=== PATIENT | female | born 1985 | race American Indian/Alaskan Native ===

== ENCOUNTER 2019-12-21 04:42 | Observation (INO) | payer MEDICAID ==
--- NOTE | 2019-12-21 06:19 | Event Note ---
Date: 12/21/19 (Presented for ctxs, found to have HR of 180) Ms. Perez is a 34 y.o. @ 39+ wks who presented to triage with c/o ctxs. Upon nursing assessment, she was found to have a HR of 180. She is known to the practice for an irregular heart rate and is being follow by [facility] d/t this irregular HR. When asked pt states that her chest feels funny. HR noted to be 200 while provider at the bedside. Dr. Garcia consulted. EKG and labs ordered stat. Also consult for hospitalist to come and see patient. Denies shortness of breath, fever, chills, known exposure to COVID-19 pts. Continuous cardiac monitoring also ordered. pharmacy services representative, Andrey noted. Pt seen and evaluated with Dr. Garcia.
--- NOTE | 2019-12-21 06:37 | Consultation ---
History of Present Illness - History of Present Illness 34-year-old woman with no medical problems, , 37 weeks is being seen for tachycardia. Patient's heart rate was in the 180s upon arrival, her heart rate is now 122, normal sinus rhythm without intervention. Patient saw a map compiler 1-1/2 months ago for irregular heart rate, tachycardia, he wore a Holter monitor. Her evaluation showed PACs, her echo was normal, she was told to follow-up with cardiology in the next seven months. The patient came to labor and delivery because she started having contractions. She is comfortable in bed, no shortness of breath, palpitations, chest pain, currently has no abdominal pain or contractions, fever, sick contacts, cough Review Of Systems: Constitutional: no weight loss, fever, chills Ears, eyes, nose, mouth and throat: no nasal congestion, no nasal discharge, no sinus pressure, blurry vision, diplopia Neck: No neck pain or rigidity. Cardiovascular: No palpitations, chest pain Respiratory: No shortness of breath, cough Gastrointestinal: No hematochezia Genitourinary : no dysuria, frequency Musculoskeletal: no muscle ache , joint pain Integumentary: no rash, no pruritis Neurological: no parathesias, focal weakness Endocrine: no cold or heat intolerance, no polyuria or polydipsia Hematologic/Lymphatic: no easy bruising, no easy bleeding, no gland swelling Allergic/Immunologic: no urticaria, no angioedema. PAST MEDICAL HISTORY: None PAST SURGICAL HISTORY: Excision of fallopian tube SOCIAL HISTORY: Denies alcohol, tobacco, drugs FAMILY HISTORY: Hypertension Medications and Allergies Active Meds: Active Medications Labetalol HCl (Labetalol) 50 mg PO ONCE ONE Stop: 12/21/19 06:32 Exam - Physical Exam Narrative exam: Gen. appearance: Patient lying in bed, no apparent distress HEENT: Normocephalic, atraumatic, pupils equally round and reactive to light, extraocular movement intact, and no sclericterus,. No JVD or thyromegaly or nodule,neck supple, no carotid bruit ,mucous membranes moist, no exudate or erythema Heart: S1, S2, regular rate and rhythm Lungs: Clear bilaterally, breathing comfortable Abdomen: Positive bowel sounds, nontender, nondistended, no organomegaly Extremity: no edema, cyanosis, clubbing Skin: No rash, nodules, warm, dry Neuro: Hernial nerves II to XII intact speech is fluent, moves extremities, sensory intact - Constitutional Vitals: Temp Pulse Resp BP Pulse Ox 98.5 F 116 H 18 127/58 97 12/21/19 06:30 12/21/19 06:30 12/21/19 06:30 12/21/19 06:30 12/21/19 06:30 Assessment and Plan Assessment Sinus tachycardia Give a one-time low-dose labetalol now, start fluids Consult her map compiler Case discussed with Dr. Garcia Will sign out to incoming hospistalist labs are pending
--- NOTE | 2019-12-21 06:40 | Event Note ---
Date: 12/21/19 Maternl heart on arrival was noted to be 200 and palpated ~same by CNM. Patient complained of contractions and ? ROM. She denies CP or SOB. She was placed on equipment monitor phototypesetting, EKG, CMP and CBC ordered and Hospitalist consulted. Will consult Cardiology as well. Now MHR 120's with tachycardia. Hospitalist present to evaluated. Will start IVF. Observe closely
[2019-12-21 07:23] LABS: Basophils % (Auto) 0.4 % (0.0-1.8); Eosinophils % (Auto) 0.2 % (0.0-4.3); Hematocrit 33.4 % (30.3-42.9); Lymphocytes % (Auto) 17.8 % (13.4-35.0); Mean Corpuscular HGB Conc 33 % (30-34); Mean Corpuscular Volume 91 fl (79-97); Monocytes % (Auto) 8.6 % (0.0-7.3); Platelet Count 199 K/mm3 (140-440); Red Blood Count 3.68 M/mm3 (3.65-5.03); Red Cell Distribution Width 15.4 % (13.2-15.2)
[2019-12-21 07:24] LABS: Lymphocytes # (Auto) 1.1 K/mm3 (1.2-5.4); Monocytes # (Auto) 0.5 K/mm3 (0.0-0.8)
--- NOTE | 2019-12-21 08:17 | Ultrasound Report ---
ULTRASOUND OBSTETRIC LIMITED INDICATION / CLINICAL INFORMATION: well being: tachycardia. TECHNIQUE: Transabdominal ultrasound imaging. COMPARISON: None available. FINDINGS: HEART RATE (beats per minute): 165 AMNIOTIC FLUID INDEX (cm) = 10.4 PRESENTATION: Cephalic. ADDITIONAL FINDINGS: None. IMPRESSION: No significant abnormality. Signer Name: Rj Duggan Jr, MD Signed: 12/21/2019 8:13 AM Workstation Name: [id number]
[2019-12-21 09:15] LABS: Alanine Aminotransferase 8 units/L (7-56); Albumin 3.3 g/dL (3.9-5); BUN/Creatinine Ratio 14; Blood Urea Nitrogen 10 mg/dL (7-17); Calcium 10.1 mg/dL (8.4-10.2); Hemolysis Index 25
--- NOTE | 2019-12-21 10:35 | Consultation ---
History of Present Illness Consult date: 12/21/19 Requesting physician: CHRIS MEDNEZ Consult reason: tachycardia History of present illness: The pt is a 34YO female who is 39+ wks who presented to triage with c/o contractions. Pt states that she thought she was in labor. Per the chart, upon nursing assessment, she was found to have a HR of 180. Admission ECG shows NSR with HR WNL. There are no telemetry strips available for review. Pt denies any cardiac complaints. She states that she is known to have a history of tachycardia. She has been seen in our office by Dr. Martinez. She underwent 48Hr Holter study in 09/2019 which showed persistent sinus tachycardia with isolated PACs, otherwise no significant arrhythmias noted. Echo done 10/09/2019 showed EF 55-60%, unremarkable except for sigmoid septum measuring 1.3cm. Past History Past Medical History: other (as per HPI) Medications and Allergies Allergies Allergy/AdvReac Type Severity Reaction Status Date / Time No Known Allergies Allergy Unverified 12/21/19 07:04 Review of Systems Constitutional: no weight loss, no weight gain, no fever, no chills, no sweats Ears, nose, mouth and throat: no ear pain, no nose pain, no sinus pressure, no sinus pain Cardiovascular: no chest pain, no orthopnea, no palpitations, no syncope, no lightheadedness, no shortness of breath, no dyspnea on exertion, no high blood pressure Respiratory: no cough, no shortness of breath, no dyspnea on exertion, no congestion, no wheezing, no pain on inspiration Gastrointestinal: other (uterine contractions), no nausea, no vomiting, no diarrhea, no constipation, no change in bowel habits Genitourinary Female: , no pelvic pain, no flank pain, no dysuria, no urinary frequency, no urgency Musculoskeletal: no neck stiffness, no neck pain, no shooting arm pain, no arm numbness/tingling, no low back pain, no shooting leg pain Integumentary: no rash, no pruritis, no redness, no sores, no wounds Neurological: no head injury, no paralysis, no weakness, no parathesias, no numbness, no tingling, no seizures, no syncope Psychiatric: no anxiety Endocrine: no cold intolerance, no heat intolerance Hematologic/Lymphatic: no easy bruising Allergic/Immunologic: no urticaria Physical Examination Vital Signs Pulse BP Pulse Ox 124 H 106/68 97 12/21/19 05:00 12/21/19 05:00 12/21/19 05:00 General appearance: no acute distress HEENT: Positive: PERRL, Normocephaly, Mucus Membranes Moist Neck: Positive: neck supple, trachea midline Cardiac: Positive: Regular Rhythm, S1/S2 Lungs: Positive: Decreased Breath Sounds Neuro: Positive: Grossly Intact Abdomen: Positive: Other () Skin: Negative: Rash Musculoskeletal: No Pain Extremities: Absent: edema Results 12/21/19 06:43 12/21/19 06:43 Cardiac Enzymes 12/21/19 Range/Units 06:43 AST 14 (5-40) units/L Lactate Dehydrogenase 194 H (91-180) units/L CBC 12/21/19 Range/Units 06:43 WBC 6.2 (4.5-11.0) K/mm3 RBC 3.68 (3.65-5.03) M/mm3 Hgb 11.0 (10.1-14.3) gm/dl Hct 33.4 (30.3-42.9) % Plt Count 199 (140-440) K/mm3 Lymph # 1.1 L (1.2-5.4) K/mm3 Hayes # 0.5 (0.0-0.8) K/mm3 Eos # 0.0 (0.0-0.4) K/mm3 Baso # 0.0 (0.0-0.1) K/mm3 Comprehensive Metabolic Panel 12/21/19 Range/Units 06:43 Sodium 136 L (137-145) mmol/L Potassium 4.0 (3.6-5.0) mmol/L Chloride 101.3 (98-107) mmol/L Carbon Dioxide 19 L (22-30) mmol/L BUN 10 (7-17) mg/dL Creatinine 0.7 (0.7-1.2) mg/dL Glucose 90 (65-100) mg/dL Calcium 10.1 (8.4-10.2) mg/dL AST 14 (5-40) units/L ALT 8 (7-56) units/L Alkaline Phosphatase 106 (35-129) units/L Total Protein 7.2 (6.3-8.2) g/dL Albumin 3.3 L (3.9-5) g/dL - Imaging and Cardiology Echo: report reviewed (10/09/2019 showed EF 55-60%, unremarkable except for sigmoid septum measuring 1.3cm.) Holter: report reviewed (48Hr Holter study in 09/2019 which showed persistent sinus tachycardia with isolated PACs, otherwise no significant arrhythmias noted.) EKG: report reviewed, image reviewed EKG interpretations - Telemetry EKG Rhythm: Sinus Rhythm - EKG Sinus rhythms and dysrhythmias: sinus rhythm Assessment and Plan Pt has known history of sinus tachycardia. She has been seen in our office by Dr. Martienz. She underwent 48Hr Holter study in 09/2019 which showed persistent sinus tachycardia with isolated PACs, otherwise no significant arrhythmias noted. Echo done 10/09/2019 showed EF 55-60%, unremarkable except for sigmoid septum measuring 1.3cm. Currently stable cardiac status. Pt has no current cardiac complaints. Suspect sinus tachycardia will improve following delivery. Per EMPLOYMENT CASE MANAGER team, pt to discharge home. Nothing further to add from cardiac perspective at this time. Recommend pt follow up in our office with Dr. Martinez within 1 month ([phone]). The patient has been seen in conjunction with Dr. Deleon who agrees with the assessment and plan of care. - Patient Problems (1) Sinus tachycardia Current Visit: Yes Status: Acute (2) Current Visit: Yes Status: Acute
[2019-12-21 10:37] VITALS: BP 128/67
--- NOTE | 2019-12-21 11:20 | Event Note ---
Date: 12/21/[address] Deleon via telephone.Patient is stable for discharge from cardiology standpoint ( see cardilology note) .Will discharge patient will normal labor precaution f/u appointment in our office on 12/23/2019.
== END 2019-12-21 11:01 | disposition home or self-care (01) ==
LOC: TRG 04:42 → LD 04:43 → TRG 04:44 → LD 06:45
PROVIDERS: ADMIT Obstetrics & Gynecology; ATTEND Obstetrics & Gynecology
DX: O62.9 Abnormality of forces of labor, unspecified (principal); O26.893 Other specified pregnancy related conditions, third trimester; R00.0 Tachycardia, unspecified; Z3A.39 39 weeks gestation of pregnancy
CPT/HCPCS: 36415; 59025; 76815; 80053; 82728; 83615; 84145; 85025; 85379; 86140; 93005; 93010; G0378

== ENCOUNTER 2019-12-25 23:23 | Outpatient (CLI) | payer MEDICAID ==
[2019-12-25 23:50] VITALS: BP 117/71
== END 2019-12-26 01:05 | disposition home or self-care (01) ==
LOC: TRG 23:23 → APU 23:24 → TRG 12-26 01:05
PROVIDERS: ATTEND Obstetrics & Gynecology
DX: O47.1 False labor at or after 37 completed weeks of gestation (principal); Z3A.39 39 weeks gestation of pregnancy
CPT/HCPCS: 59025

== ENCOUNTER 2019-12-27 20:25 | Inpatient (IN) | payer MEDICAID ==
[2019-12-27] MEDS ORDERED: MINERAL OIL 30 ML ORAL LIQD PO PRN (20:59)
[2019-12-27] MEDS ORDERED: TERBUTALINE 1 MG/1 ML INJ SUB-Q PRN (20:59)
[2019-12-27] MEDS ORDERED: ePHEDrine SULFATE 50 MG/1 ML INJ IV PRN (20:59)
[2019-12-27] MEDS ORDERED: OXYTOCIN 20 UNIT/1000ML DRIP 20 UNITS/1,000 ML BAG IV SCH (21:00)
--- NOTE | 2019-12-27 21:17 | History and Physical Report ---
History of Present Illness Date of examination: 12/27/19 Date of admission: 12/27/19 20:25 Chief complaint: IOL Per [facility] recommendations @ 40+01 weeks History of present illness: EDC Confirmation: 12/26/2019 Past History : 3 Term Births: 0 Premature Births: 1 Living Children: 1 Para: 1 Mult. Births: 0 Prev : 0 Prev. attempt? none Aborta: 0 Elect. Ab: 0 Spont. Ab: 0 Ectopics: 1 # 1 Delivery date: 01/06/2012 Weeks Gestation: 34.4 labor: yes Delivery type: Anesthesia type: none Infant Sex: Female weight: 5# Name: Jennifer Comments: delivered at [facility] # 2 Delivery date: 09/15/2012 Comments: ectopic Past Medical History: Negative Past Medical History Past Surgical History: negative Past Medical History Anesthesia Complications: negative Anemia: negative Autoimmune Disorder: negative Bleeding Disorder: negative Blood Transfusions: negative Breast Disease: negative Diabetes: negative Heart Disease: negative Hypertension: negative Hepatitis/Liver Disease: negative Kidney Disease/UTI: negative Neurologic/Epilepsy/Migraines: negative Phlebitis/Varicosities: negative Psychiatric: negative Pulmonary Disease/Asthma: negative Thyroid Disease: negative Hospitalizations: negative Surgery (Non-product test specialist): negative Abnormal PAP: negative LALITHA Exposure: negative Infertility: negative Uterine Anomaly: negative Uterine Surgery (not C/S): negative Infection History Personal hx. of genital herpes: yes Varicella/Chicken Pox Status: Previous Disease Genetic History Congenital Heart Defect: Mom: no Dad: no Awais Disease: Mom: no Dad: no Thalassemia Mom: no Dad: no Neural Tube Defect Mom: no Dad: no Down's Syndrome Mom: no Dad: no Bonifacio-Sachs Mom: no Dad: no Sickle Cell Disease/Trait Mom: no Dad: no Hemophilia Mom: no Dad: no Muscular Dystrophy Mom: no Dad: no Cystic Fibrosis Mom: no Dad: no Eloisa Chorea Mom: no Dad: no Mental Retardation Mom: no Dad: no Fragile X Mom: no Dad: no Other Genetic/Chromosomal Disorder Mom: no Dad: no Child w/other defect Mom: no Dad: no Enviromental Exposures Xray Exposure: no Medication, drug, or alcohol use since LMP: no Chemical/Other Exposure: no Exposure to Cat Liter: no Hx of Parvovirus (Fifth Disease): no Occupational Exposure to Children: none Current Allergies (reviewed today): No known allergies Past History Past Medical History: other (See HPI) Past Surgical History: other (See HPI) QUILL REAMER History: herpes Family/Genetic History: other (see HPI) Social history: no significant social history - Obstetrical History Expected Date of Delivery: 12/26/19 Actual Gestation: 40 Week(s) 1 Day(s) : 3 Para: 1 Hx # Term Pregnancies: 0 Number of Pregnancies: 1 Spontaneous Abortions: 1 (ectopic) Induced : 0 Number of Living Children: 1 Medications and Allergies Allergies Allergy/AdvReac Type Severity Reaction Status Date / Time No Known Allergies Allergy Unverified 12/21/19 07:04 Active Meds: Active Medications Butorphanol Tartrate (Stadol) 2 mg IV Q2H PRN PRN Reason: Pain , Severe (7-10) Dinoprostone (Cervidil) 10 mg VG ONCE ONE Stop: 12/27/19 22:01 Ephedrine Sulfate (Ephedrine Sulfate) 10 mg IV Q2M PRN PRN Reason: Hypotension Oxytocin/Sodium Chloride (Pitocin/Ns 20 Unit/1000ml Drip) 20 units in 1,000 mls @ 125 mls/hr IV DIRECT JULIANA Lactated Ringer's (Lactated Ringers) 1,000 mls @ 125 mls/hr IV DIRECT JULIANA Lidocaine (Xylocaine 2%) 20 ml INFILTRATI ONCE ONE Stop: 12/27/19 22:01 Mineral Oil (Mineral Oil) 30 ml PO QHS PRN PRN Reason: Constipation Terbutaline Sulfate (Brethine) 0.25 mg SUB-Q ONCE PRN PRN Reason: Hyperstimulation/Hypertonicity Review of Systems All systems: negative Genitourinary: no genital sores - Vital Signs Vital signs: Vital Signs Pulse Pulse Ox 89 100 12/27/19 20:57 12/27/19 20:57 Temp Pulse Resp BP Pulse Ox 110 H 119/67 94 12/27/19 20:58 12/27/19 20:58 12/27/19 20:58 - Physical Exam Breasts: Positive: normal Cardiovascular: Regular rate Lungs: Positive: Normal air movement Abdomen: Positive: normal appearance, soft Genitourinary (Female): Positive: normal external genitalia, normal perenium. Negative: perineal/vulvar lesions (no signs of HSV observed) Vagina: Positive: normal moisture Extremities: Positive: normal - Obstetrical FHR: auscultation normal Uterine Contraction Monitor Mode: External Cervical Dilatation: 2 Cervical Effacement Percentage: 65 station: -3 Results All other labs normal. labs from 06/04/19: Patient: DEBORAH SWANSON ID: [id number] Note: All result statuses are Final unless otherwise noted. Tests: (1) Profile I ([id number]) Order Note: Clinical Information: SRC:UR HBsAg Screen Negative Negative *1 RPR Non Reactive Non Reactive *2 Rubella Antibodies, IgG 5.99 index Immune >0.99 *3 Non-immune <0.90 Equivocal 0.90 - 0.99 Immune >0.99 ABO Grouping A *4 Rh Factor Positive *5 Please note: Prior records for this patient's ABO / Rh type are not available for additional verification. Antibody Screen Negative Negative *6 WBC 6.6 x10E3/uL 3.4-10.8 *7 RBC 4.20 x10E6/uL 3.77-5.28 *8 Hemoglobin 12.3 g/dL 11.1-15.9 *9 Hematocrit 37.4 % 34.0-46.6 *10 MCV 89 fL 79-97 *11 MCH 29.3 pg 26.6-33.0 *12 MCHC 32.9 g/dL 31.5-35.7 *13 RDW 14.6 % 12.3-15.4 *14 Platelets 217 x10E3/uL 150-450 *15 Neutrophils 75 % Not Estab. *16 Lymphs 16 % Not Estab. *17 Monocytes 8 % Not Estab. *18 Eos 1 % Not Estab. *19 Basos 0 % Not Estab. *20 ! Immature Cells <No Reported Value> *21 Neutrophils (Absolute) 4.9 x10E3/uL 1.4-7.0 *22 Lymphs (Absolute) 1.1 x10E3/uL 0.7-3.1 *23 Monocytes(Absolute) 0.5 x10E3/uL 0.1-0.9 *24 Eos (Absolute) 0.0 x10E3/uL 0.0-0.4 *25 Baso (Absolute) 0.0 x10E3/uL 0.0-0.2 *26 ! Immature Granulocytes 0 % Not Estab. *27 ! Immature Grans (Abs) 0.0 x10E3/uL 0.0-0.1 *28 ! NRBC <No Reported Value> *29 Hematology Comments: <No Reported Value> *30 Tests: (2) Panel [id number] ([id number]) HIV Screen 4th Generation wRfx Non Reactive Non Reactive *31 Tests: (3) Gest. Diabetes 1-Hr Screen ([id number]) ! Gestational Diabetes Screen 70 mg/dL 65-139 *32 According to ADA, a glucose threshold of >139 mg/dL after 50-gram load identifies approximately 80% of women with gestational diabetes mellitus, while the sensitivity is further increased to approximately 90% by a threshold of >129 mg/dL. Tests: (4) HCV Ab w/Rflx to Verification ([id number]) ! HCV Ab <0.1 s/co ratio 0.0-0.9 *33 Tests: (5) Comment: ([id number]) ! Comment: SPRCS *34 Non reactive HCV antibody screen is consistent with no HCV infection, unless recent infection is suspected or other evidence exists to indicate HCV infection. Tests: (6) Urine Culture, Routine ([id number]) Urine Culture, Routine Final report *35 Tests: (7) Result ([id number]) ! Result 1 No growth *36 Labs from 11/24/19 Tests: (1) Ct, Ng, Trich vag by MINAL ([id number]) Order Note: Clinical Information: SRC:VR SRC:UR Chlamydia by MINAL Negative Negative *1 Gonococcus by MINAL Negative Negative *2 Trich vag by MINAL Negative Negative *3 Tests: (2) Strep Gp B MINAL ([id number]) ! Strep Gp B MINAL Negative Negative *4 Assessment and Plan 34y/o @ 40+1 admitted for IOL per [facility] recommendations. GBS NEG. complicated by hx delivery, morbid obesity, maternal proteinuria and HSV. Admission orders in EMR. Plan on cervidil tonight and pi tocin tomorrow. EFW by [facility] last checked 11/25/19 6#2oz. - Patient Problems (1) 40 weeks gestation of Current Visit: Yes Status: Acute (2) BMI 50.0-59.9, adult Current Visit: Yes Status: Acute Plan to address problem: careful monitoring Internal monitoring when appropriate, if needed (3) Gestational proteinuria without hypertension Current Visit: Yes Status: Acute Qualifiers: Trimester: third trimester Qualified Code(s): O12.13 - Gestational proteinuria, third trimester Plan to address problem: Monitor vistal signs and s/s pre-e (4) HSV infection Current Visit: Yes Status: Acute Plan to address problem: no current signs/symptoms of outbreak. Continue to monitor
[2019-12-27 21:51] LABS: Hemoglobin 11.5 gm/dl (10.1-14.3); Mean Corpuscular HGB Conc 34 % (30-34); Mean Corpuscular Volume 90 fl (79-97); Platelet Count 191 K/mm3 (140-440); Red Cell Distribution Width 15.5 % (13.2-15.2)
[2019-12-27] MEDS: LACTATED RINGERS 1,000 ML IV SCH ×2 (21:52→23:21)
[2019-12-27] MEDS ORDERED: DINOPROSTONE 10 MG VAG SUPP VG ONE (22:00)
[2019-12-27] MEDS ORDERED: LIDOCAINE (2%) 20 MG/1 ML VIAL 20 ML MDV INFILTRATI ONE (22:00)
[2019-12-27] MEDS ORDERED: ZOLPIDEM 5 MG TAB PO ONE (23:15)
[2019-12-27] MEDS: BUTORPHANOL 2 MG/1 ML INJ IV PRN (23:35)
[2019-12-28] MEDS: BUTORPHANOL 2 MG/1 ML INJ IV PRN ×2 (00:55→02:39)
[2019-12-28] MEDS ORDERED: miSOPROStol 200 MCG TAB ONE (03:34)
[2019-12-28] MEDS ORDERED: METHYLERGONOVINE MALEATE 0.2 MG/ML VIAL IM ONE (03:35)
--- NOTE | 2019-12-28 03:57 | Procedure Note ---
OB Delivery Note - Delivery Date of Delivery: 12/28/19 (famle infant) Web Operations Administrator: GENEVIEVE WESTBROOK Estimated blood loss: 300cc - Vaginal Delivery presentation: vertex Delivery position: OA Intrapartum events: none Delivery induction: cervidil Delivery monitor: external FHT, external uterine Route of delivery: Delivery placenta: spontaneous Delivery cord: nuchal cord, 3 umbilical vessels Episiotomy: none Delivery laceration: 1st degree Anesthesia: none Delivery comments: received call @ 0317 that patient rapidly progressed to 9cms. baby del @ 0325, RACHEL with a loose nuchal cord with nurse. BOW ruptured after head delivered. Placenta del intact and complete. 1st degree perineal laceration noted hemostatic. after reviewing options for repair with local, patient agreed to allow lac to heal on it's own. Lochia small. Fundus firm. Apgars 8/9, baby 7#5oz, EBL 300. Mother and baby LDR stable. - A at 1 minute: 8 at 5 minutes: 9 Gender: Female (7#5oz "Isabel")
[2019-12-28] MEDS ORDERED: BENZOCAINE/MENTHOL 20/0.5% TOP SPRAY 56 GM TP PRN ×2 (03:59→06:56)
[2019-12-28] MEDS ORDERED: IBUPROFEN 800 MG TAB PO PRN (03:59)
[2019-12-28] MEDS ORDERED: oxyCODONE /ACETAMINOPHEN 5-325MG TAB PO ONE (04:30)
[2019-12-28] MEDS ORDERED: IBUPROFEN 600 MG TAB PO SCH (06:56)
[2019-12-28] MEDS ORDERED: WITCH HAZEL/ GLYCERIN PAD TP PRN (06:56)
[2019-12-28] MEDS ORDERED: ACETAMINOPHEN 325 MG TAB PO PRN (06:56)
[2019-12-28] MEDS ORDERED: LANOLIN/ZINC/DIMETHICONE (LANSINOH) 7 GM TP PRN (06:56)
[2019-12-28] MEDS ORDERED: diphenhydrAMINE 25 MG CAP PO PRN (06:56)
[2019-12-28] MEDS ORDERED: ONDANSETRON 4 MG/2 ML INJ IV PRN (08:00)
[2019-12-28] MEDS ORDERED: PROMETHAZINE 25 MG TAB PO PRN (08:00)
[2019-12-28] MEDS ORDERED: OXYTOCIN 20 UNIT/1000ML DRIP 20 UNITS/1,000 ML BAG IV SCH (08:00)
[2019-12-28] MEDS: IBUPROFEN 800 MG TAB PO SCH ×3 (08:34→20:57)
[2019-12-28] MEDS: PRENATAL VIT27-FE FUMARATE-FOLIC ACID VIT TAB PO SCH (10:21)
[2019-12-28] MEDS: DOCUSATE SODIUM 100 MG CAP PO SCH ×2 (10:21→22:16)
[2019-12-28 15:24] LABS: Hematocrit 30.2 % (30.3-42.9)
[2019-12-28] MEDS ORDERED: MAGNESIUM HYDROXIDE (MOM) ORAL LIQD UDC PO PRN (22:00)
[2019-12-29] MEDS: IBUPROFEN 800 MG TAB PO SCH ×2 (02:43→10:34)
[2019-12-29] MEDS ORDERED: TETANUS,DIPH,PERTUSS(ACELL) VACCINE 0.5 ML SYRINGE IM ONE (08:00)
--- NOTE | 2019-12-29 08:15 | Discharge Summary ---
Providers - Providers Date of Admission: 12/27/19 20:25 Attending physician: ROBERTO CASTAÑEDA Primary care physician: ROBERTO CASTAÑEDA Hospitalization Reason for admission: active labor Delivery: Episiotomy: none Laceration: none Other procedures: none complications: none Discharge diagnosis: IUP at term delivered baby: female Hospital course: S: Pt doing well. Ambulating, voiding, and passing flatus. BC: Pills. Would like Depo before discharge home. O: VSS, pulse within normal limits. Fundus hard to palpate d/t body habitus. Minimal bleeding noted. H/H 10.0/30.2 A: 34 y.o. s/p @ term, stable for discharge home. P: visit in 4 weeks. Condition at discharge: Stable Disposition: DC-01 TO HOME OR SELFCARE Plan - Provider Discharge Summary Activity: routine, no sex for 6 weeks, no heavy lifting 4 weeks Diet: routine Instructions: routine Additional instructions: [] Smoking cessation referral if applicable(refer to patient education folder for contact #) [] Refer to [facility]'s [facility] Booklet Call your doctor immediately for: * Fever > 100.5 * Heavy vaginal bleeding ( >1 pad per hour) * Severe persistent headache * Shortness of breath * Reddened, hot, painful area to leg or breast * Drainage or odor from incision. * Keep incision clean and dry at all times and follow doctor's instructions regarding bathing/showering - Follow up plan Follow up: ROBERTO CASTAÑEDA MD [Primary Care Provider] - 7 Days (Congratulations!!! Please schedule a visit in 4 weeks. If you have any questions or concerns, please do not hesitate to call the office @ [phone].) Forms: [facility] Discharge Summary
[2019-12-29] MEDS: DOCUSATE SODIUM 100 MG CAP PO SCH (10:34)
[2019-12-29] MEDS: PRENATAL VIT27-FE FUMARATE-FOLIC ACID VIT TAB PO SCH (10:35)
[2019-12-29] MEDS ORDERED: medroxyPROGESTERone ACETATE 150 MG/ML SYRINGE IM ONE (13:43)
[2019-12-29 15:51] VITALS: BP 89/51
== END 2019-12-29 16:08 | disposition home or self-care (01) | DRG 774 ==
LOC: LD 20:25 → OB 12-28 06:54
PROVIDERS: ADMIT Obstetrics & Gynecology; ATTEND Obstetrics & Gynecology
PROC: 10E0XZZ Delivery of Products of Conception, External Approach (ICD-10-PCS; principal; 2019-12-28)
PROC: 0HQ9XZZ Repair Perineum Skin, External Approach (ICD-10-PCS; 2019-12-28)
PROC: 3E0234Z Introduction of Serum, Toxoid and Vaccine into Muscle, Percutaneous Approach (ICD-10-PCS; 2019-12-29)
DX: O99.214 Obesity complicating childbirth (principal); O98.52 Other viral diseases complicating childbirth; E66.01 Morbid (severe) obesity due to excess calories; O12.14 Gestational proteinuria, complicating childbirth; B00.9 Herpesviral infection, unspecified; O70.0 First degree perineal laceration during delivery; O69.81X0 Labor and delivery complicated by cord around neck, without compression, not applicable or unspecified; Z3A.40 40 weeks gestation of pregnancy; Z37.0 Single live birth; Z23 Encounter for immunization
CPT/HCPCS: 36415; 59025; 59200; 85014; 85018; 85027; 86592; 86850; 86900; 86901; G0378; J0595; J1050; J2210; J2590; J7120